=== PATIENT | male | born 1945 | race Caucasian/White ===

== ENCOUNTER 2023-11-12 11:28 | Outpatient (AMB) | payer MEDICARE, OTHER, SELFPAY ==
--- NOTE | 2023-11-12 11:33 | A.OFFVIS_ITS ---
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 Low back pain has been chronic condition for him bottom worsening for the past 5-7 years. He reports sergey diving injury in 1960s when he fell and hit the ground. He was followed previously by [facility] and [facility] and received multiple injections. Most recent injection in June 2021 at [facility] he underwent bilateral L4-L5 selective epidural injections with 30% overall symptom improvement. Back pain is localized to lower spine with radiation to his left buttock and bilateral anterior thighs and shins with numbness, tingling, and burning. Pain affects his daily activities, functioning, mood, sleep, and social interactions. He rates pain at 4/10 at rest and 7/10 with activities or walking. Denies any fever, chills, dizziness, shortness of breath, chest pain, bladder or bowel dysfunction or saddle anesthesia. Patient would like to proceed with interventional therapies for pain relief. Most recent lumbar spine MRI was completed in 2021 and is noted below. Location: Lower back radiates down bilateral legs Duration: Chronic pain, worsening for past 7 years Characteristics of symptom or complaint: Stabbing, sharp, burning, tingling, aching, exhausting, radiating, sore Aggravating or associated factors: Any movement, heat, walking, standing, prolonged sitting Relieving factors: Laying down, activity modifications, NSAIDs, tizanidine, tramadol Treatment: PT, Injections, lumbar fusion in 2007 ON LICENSE OF [facility] Medical History (Updated 11/12/23 @ 22:23 by Lucrecia Buchachiy, [employer]) Lumbar degenerative disc disease Lumbar spinal stenosis Heart murmur Aortic stenosis History of MRSA infection Chronic back pain Chronic depression Surgical History (Updated 11/12/23 @ 22:21 by RADHA Carrasco) H/O spinal fusion H/O microdiscectomy History of total right hip replacement Review of Systems Const All systems reviewed & are unremarkable except as noted in HPI and below Physical Exam Vital Signs: Last Vital Signs Pulse 63 11/12/23 11:41 BP 156/80 H 11/12/23 11:41 Pulse Ox 96 11/12/23 11:41 Oxygen Delivery Method Room Air 11/12/23 11:41 BMI result Body Mass Index 27.7 General: Appears afebrile. Alert and oriented. Mood and affect appropriate. Follows and participates in conversation appropriately. Respiratory effort is unlabored. No cough. Able to transition from sit to stand unassisted. Ambulates with bilaterally normal heel strike and toe off, reports increasing pain with toe and heel standing, left>right. General: Yes no CVA tenderness Back/Spine/Pelvis Other: Limited lumbar ROM due to pain and previous lumbar fusion. Demonstrates 5/5 strength of quadriceps bilaterally as well as flexion/dorsiflexion of bilateral feet against resistance. 2+ pedal pulses bilaterally. Straight leg rise with dorsiflexion positive bilaterally. +1 patellar and achilles reflexes bilaterally. Facet loading test positive bilaterally. New sign, Pelvic compression tests are negative bilaterally. Roe's test negative on the left, not tested on the right due to h/o FARRAH. No groin pain with I/E hip rotations. Valsalva maneuver negative. Back: no CVA tenderness Cervical Spine: loss of normal cervical lordosis, cervical muscular tenderness and No Cervical spine tenderness Thoracic/Lumbar Spine: thoracic and lumbar spine normal to inspection, Thoracic/lumbar spine scar(s), Lasegue's sign positive bilateral, pain with thoraco-lumbar ROM, paraspinal muscle tenderness, thoraco-lumbar ROM limited, No thoracic spinal tenderness and lumbar spinal tenderness (L3-S1) Pelvis: buttock tenderness on the left and sciatic notch tenderness on the left Sacroiliac joints: bilaterally tender to palpation Results Reviewed Results Reviewed: Assessment & Plan Assessment & Plan (1) Lumbar post-laminectomy syndrome: Code(s): M96.1 - Postlaminectomy syndrome, not elsewhere classified (2) H/O spinal fusion: Code(s): Z98.1 - Arthrodesis status Category: Surgical (3) Lumbar spinal stenosis: Code(s): M48.061 - Spinal stenosis, lumbar region without neurogenic claudication Category: Medical (4) Lumbar degenerative disc disease: Code(s): M51.36 - Other intervertebral disc degeneration, lumbar region Category: Medical (5) Low back pain radiating to both legs: Code(s): M54.50 - Low back pain, unspecified; M79.604 - Pain in right leg; M79.605 - Pain in left leg Category: Medical Plan Schedule Caudal MITRA with catheter with sedation and fluoroscopy. Expectations, risks and benefits were reviewed. Patient is aware he will be contacted to schedule this procedure. We also discussed neuromodulation, including SCS trial and implant for a longer term pain relief. Informational brochure has been provided to patient today. All questions were answered and the patient is in agreement of plan. Follow-up after injections and sooner as needed. Anticoagulation: Patient is not on anticoagulation, except Fish oil and NSAIDs Justification for interventional therapy: ? Patient with average pain > 6/10 ? Patient has exhausted conservative therapy The risks, consequences, alternatives, and benefits of various treatment options were discussed with the patient in great detail, including conservative management, injections and procedures. Coding Level of Care Code New Pt Level 4 (98807) Diagnoses Lumbar post-laminectomy syndrome M96.1 H/O spinal fusion Z98.1 Lumbar spinal stenosis M48.061 Lumbar degenerative disc disease M51.36 Low back pain radiating to both legs M54.50; M79.604; M79.605
[2023-11-12 11:41] VITALS: BP 156/80; PULSE 63; O2SAT 96; BMI 27.7
== END 2023-11-12 12:10 | disposition home or self-care (01) ==
PROVIDERS: PCP Internal Medicine; Visit Provider Nurse Practitioner Family
DX: M48.061 Spinal stenosis, lumbar region without neurogenic claudication (principal); M96.1 Postlaminectomy syndrome, not elsewhere classified; M51.36 Other intervertebral disc degeneration, lumbar region; Z98.1 Arthrodesis status; M54.50 Low back pain, unspecified; M79.604 Pain in right leg; M79.605 Pain in left leg
CPT/HCPCS: 99204

== ENCOUNTER → 2023-11-12 11:28 | Outpatient (BNVA) | payer MEDICARE, OTHER, SELFPAY | PROVIDERS: PCP Internal Medicine; Visit Provider Nurse Practitioner Family | DX: M96.1 Postlaminectomy syndrome, not elsewhere classified (principal); M51.36 Other intervertebral disc degeneration, lumbar region; M48.061 Spinal stenosis, lumbar region without neurogenic claudication; M54.50 Low back pain, unspecified; M79.604 Pain in right leg; M79.605 Pain in left leg; Z98.1 Arthrodesis status | CPT/HCPCS: 99202 ==

== ENCOUNTER → 2024-03-04 08:18 | Day surgery (SDC) | payer MEDICARE, OTHER, SELFPAY ==
[2024-01-20 12:14] VITALS: BMI 27.7
--- NOTE | 2024-01-21 13:48 | HO.ANESPROP2 ---
Documented by User: Charlene Lozada NP 02/24/24 13:38 HPI - Anesthesia Eval Consult details Narrative: 78yo M for Caudal Epidural Steroid Injection with Catheter, 03/04/24 Follows [facility] for aortic stenosis. Stable per 11/2023 office visit. PMFSH Active Problems Active Problems: All Active Problems Low back pain radiating to both legs (Acute) Lumbar degenerative disc disease (Acute) Lumbar spinal stenosis (Acute) H/O spinal fusion (Acute) Past Medical History Medical History History of trigger finger Hyperlipidemia Lumbar degenerative disc disease Lumbar spinal stenosis Heart murmur Aortic stenosis History of MRSA infection Chronic back pain Chronic depression Surgical History Surgical History History of total left hip replacement H/O spinal fusion H/O microdiscectomy History of total right hip replacement Social History Social History Patient Tobacco Use Status: Former Tobacco user Use of substances other than those prescribed or required for medical reasons: No Are you DNR?: No Advance Directives: No Advance Directives Information Provided: Yes Recently lost weight without trying: No Nutrition Risks: No Nutritional Risk Poor oral hygiene: No Meds Allergies Allergy/AdvReac Type Severity Reaction Status Date / Time No Known Allergies Allergy Verified 11/12/23 11:41 Home Medications ?Medication ?Instructions ?Recorded ?Confirmed ?Last Taken ?Type docusate sodium 100 mg capsule 100 mg PO TID 11/12/23 Unknown History (Stool Softener) magnesium oxide 500 mg PO BID 11/12/23 Unknown History meloxicam 15 mg tablet 15 mg PO DAILY 11/12/23 Unknown History multivitamin-ferrous 1 tab PO DAILY 11/12/23 Unknown History fumarate-folic acid 18 mg-400 mcg tablet (Centrum) naproxen sodium 220 mg tablet 220 mg PO Q12H PRN 11/12/23 Unknown History (Aleve) tizanidine 2 mg tablet 2 mg PO BEDTIME 11/12/23 Unknown History tramadol 50 mg tablet 50 mg PO QID PRN 11/12/23 Unknown History Exam Height,Weight and Vital Signs: Height 5 ft 8 in Weight 82.554 kg Narrative Narrative: EKG 11/2023 SB otherwise nml ECHO 10/2023 Vigorous LV sys function with moderate . Mean gradient is 21mmHg and VTI ration 0.29. (No significant change from previous. (SANDY 1.1cm2) Assessment and Plan Assessment Anesthesia Assessment: Chart Reviewed Documented by User: Britney Calixto MD 03/04/24 10:01 [facility] Past Medical History Medical History History of trigger finger Hyperlipidemia Lumbar degenerative disc disease Lumbar spinal stenosis Heart murmur Aortic stenosis History of MRSA infection Chronic back pain Chronic depression Surgical History Surgical History History of total left hip replacement H/O spinal fusion H/O microdiscectomy History of total right hip replacement History of Problems with Anesthesia: No Social History Social History Patient Tobacco Use Status: Former Tobacco user Use of substances other than those prescribed or required for medical reasons: No Are you DNR?: No Advance Directives: No Advance Directives Information Provided: Yes Recently lost weight without trying: No Nutrition Risks: No Nutritional Risk Poor oral hygiene: No Meds Allergies Allergy/AdvReac Type Severity Reaction Status Date / Time No Known Allergies Allergy Verified 11/12/23 11:41 Home Medications ?Medication ?Instructions ?Recorded ?Confirmed ?Last Taken ?Type docusate sodium 100 mg capsule 100 mg PO TID 11/12/23 Unknown History (Stool Softener) magnesium oxide 500 mg PO BID 11/12/23 Unknown History meloxicam 15 mg tablet 15 mg PO DAILY 11/12/23 Unknown History multivitamin-ferrous 1 tab PO DAILY 11/12/23 Unknown History fumarate-folic acid 18 mg-400 mcg tablet (Centrum) naproxen sodium 220 mg tablet 220 mg PO Q12H PRN 11/12/23 Unknown History (Aleve) tizanidine 2 mg tablet 2 mg PO BEDTIME 11/12/23 Unknown History tramadol 50 mg tablet 50 mg PO QID PRN 11/12/23 Unknown History Exam Airway Mallampati Class: III TM Dist: >3cm Neck ROM: Full Partial: Upper Loose/Missing/Broken Teeth: Yes and Upper Heart: RRR MEJIA Lungs: CTA Assessment and Plan Assessment Anesthesia Assessment: Anesthesia Plan Discussed Final Anesthetic Review History of Problems with Anesthesia: No NPO: Yes ASA Class: III Final Preanesthetic Review: Meds/Allgs Chart Reviewed, Consent Obtained/Reviewed and Anes Risks/Benef Reviewed Patient Risk: Intermediate Procedure Risk: Low Anesthetic Plan Anesthetic Plan: MAC: Disposition: Standard PACU
[2024-03-04 09:38] VITALS: BMI 27.6
[2024-03-04 09:45] VITALS: BP 171/81; PULSE 71; RESP 16; TEMP 36.8; O2SAT 99
[2024-03-04] MEDS: Lactated Ringers 1,000 ML 100 ML IVCONT (10:03)
--- NOTE | 2024-03-04 10:45 | PC.NURSE ---
right buttock covered with a bandaid. md almanza by bedside evaluting patient. cancelled due to ?mrsa in right buttock wound. being seen at dermatology.
[2024-03-11 16:17] LABS: MRSA Nasal PCR POSITIVE (Negative); SA Nasal PCR POSITIVE (Negative)
== END ==
LOC: HO.SSS 08:19
PROVIDERS: PCP Physician Assistant Medical; Visit Provider Anesthesiology
DX: M51.369 Other intervertebral disc degeneration, lumbar region without mention of lumbar back pain or lower extremity pain (principal); Z53.09 Procedure and treatment not carried out because of other contraindication; M96.1 Postlaminectomy syndrome, not elsewhere classified
CPT/HCPCS: 87081; 87640; 87641; J2003; J2250; J3010; J3301; Q9967

== ENCOUNTER 2024-03-10 11:23 | Outpatient (AMB) | payer MEDICARE, OTHER, SELFPAY ==
--- NOTE | 2024-03-10 11:28 | MHC.OFFVIS ---
Vital Signs 03/10/24 11:33 Height 5 ft 8.5 in Weight 185 lb 8 oz BMI 27.8 BP 140/72 H Blood Pressure Location Lt brachial Position Sitting Respiration 14 Pulse 64 Pulse Source Pulse Oximeter Pulse Oximetry (%) 98 Oxygen Delivery Method Room Air Intake Visit Reasons: Follow Up S/p Cx Procedure from 03/04/24 Intake Note: Patient comes in for follow up. Reports pain 08/11. Allergies No Known Allergies Allergy (Verified 03/10/24 11:34) HPI Comments Details: Bowen is very pleasant 78 years old gentleman who presents in my office today after our 1st encounter on 03/04/2024 when he came to the operating room to receive caudal epidural steroid injection with catheter ordered by Lucrecia, the TECHNOLOGY COACH. He has a history of L2 through L4 spinal fusion which was performed in 2007. He was recently diagnose with MRSA infection which is infected wound on his lower buttock/thigh. Because of the MRSA diagnosis I cancelled the injection. Besides I do not think that in his situation caudal MITRA with catheter would be appropriate procedure to perform. The patient presented today in we had very long discussion about the level of his pain. He reports that tramadol helps his pain more than anything. He reported today that it also improves his mood and also clears out his sinuses. The nature of tramadol was discussed. I told the patient that I can give him a short script of tramadol today, however if he wants to receive tramadol regularly in this office I can admit him into chronic opioid program. He is under care of psychiatrist but he stated that he just recently finished a course of Zoloft and he is no longer taking any antidepressant medications. He reported that is all of did not help his depression. We also discussed possibility of treatment of this patient with spinal cord stimulation. His pain is mostly axial and stems out of postlaminectomy syndrome. However I need to make sure that he no longer harbors MRSA infection. I will schedule him for multiple sources of cultures. Prior: h/o lumbar degenerative disc disease, L2-L4 spinal fusion in 2007, lumbar spinal stenosis, history of recent MRSA infection (treated at [facility]), heart murmur (sees [facility]) and chronic depression,c/o low back pain due to lumbar spinal stenosis. Low back pain has been chronic condition for him, worsening for the past 5-7 years. He reports sergey diving injury in 1960s when he fell and hit the ground. He was followed previously by [facility] and [facility] and received multiple injections. Most recent injection in June 2021 at [facility] he underwent bilateral L4-L5 selective epidural injections with 30% overall symptom improvement. Back pain is localized to lower spine with radiation to his left buttock and bilateral anterior thighs and shins with numbness, tingling, and burning. [facility] Medical History History of trigger finger Hyperlipidemia Lumbar degenerative disc disease Lumbar spinal stenosis Heart murmur Aortic stenosis History of MRSA infection Chronic back pain Chronic depression Surgical History History of total left hip replacement H/O spinal fusion H/O microdiscectomy History of total right hip replacement Social History Patient Tobacco Use Status: Former Tobacco user Review of Systems Const All systems reviewed & are unremarkable except as noted in HPI and below Physical Exam Vital Signs: Last Vital Signs Pulse 64 03/10/24 11:33 Resp 14 03/10/24 11:33 BP 140/72 H 03/10/24 11:33 Pulse Ox 98 03/10/24 11:33 Oxygen Delivery Method Room Air 03/10/24 11:33 BMI result Body Mass Index 27.8 General: Appears afebrile. Alert and oriented. Mood and affect appropriate. Follows and participates in conversation appropriately. Respiratory effort is unlabored. No cough. Able to transition from sit to stand unassisted. Ambulates with bilaterally normal heel strike and toe off, reports increasing pain with toe and heel standing, left>right. General: Yes no CVA tenderness Back/Spine/Pelvis Other: Limited lumbar ROM due to pain and previous lumbar fusion. Demonstrates 5/5 strength of quadriceps bilaterally as well as flexion/dorsiflexion of bilateral feet against resistance. 2+ pedal pulses bilaterally. Straight leg rise with dorsiflexion positive bilaterally. +1 patellar and achilles reflexes bilaterally. Facet loading test positive bilaterally. New sign, Pelvic compression tests are negative bilaterally. Roe's test negative on the left, not tested on the right due to h/o FARRAH. No groin pain with I/E hip rotations. Valsalva maneuver negative. Back: no CVA tenderness Cervical Spine: loss of normal cervical lordosis, cervical muscular tenderness and No Cervical spine tenderness Thoracic/Lumbar Spine: thoracic and lumbar spine normal to inspection, Thoracic/lumbar spine scar(s), Lasegue's sign positive bilateral, pain with thoraco-lumbar ROM, paraspinal muscle tenderness, thoraco-lumbar ROM limited, No thoracic spinal tenderness and lumbar spinal tenderness (L3-S1) Pelvis: buttock tenderness on the left and sciatic notch tenderness on the left Sacroiliac joints: bilaterally tender to palpation Results Reviewed Results Reviewed: Assessment & Plan Assessment & Plan (1) Lumbar post-laminectomy syndrome: Code(s): M96.1 - Postlaminectomy syndrome, not elsewhere classified (2) H/O spinal fusion: Code(s): Z98.1 - Arthrodesis status Category: Surgical (3) Lumbar spinal stenosis: Code(s): M48.061 - Spinal stenosis, lumbar region without neurogenic claudication Category: Medical (4) Lumbar degenerative disc disease: Code(s): M51.36 - Other intervertebral disc degeneration, lumbar region Category: Medical (5) Low back pain radiating to both legs: Code(s): M54.50 - Low back pain, unspecified; M79.604 - Pain in right leg; M79.605 - Pain in left leg Category: Medical (6) MRSA (methicillin resistant staph aureus) culture positive: Code(s): Z22.322 - Carrier or suspected carrier of Methicillin resistant Staphylococcus aureus Category: Medical Plan 1. I will prescribe him tramadol for 28 days. She reports very good results from tramadol. He is not taking any antidepressants at this moment. 2. I will invite him in the office in 3 weeks to discuss chronic opioid program. 3. I will schedule him for blood cultures as below. 4. Treatment of his lower back pain with [place] [employer] spinal cord stimulator will be contemplated in the future. Orders: Orders MRSA Nasal Screen 1 Day Z22.322 - Carrier or suspected carrier of Methicillin resistant Staphylococcus aureus Blood Culture X1 Today Z22.322 - Carrier or suspected carrier of Methicillin resistant Staphylococcus aureus MRSA Culture 1 Day Z22.322 - Carrier or suspected carrier of Methicillin resistant Staphylococcus aureus MRSA Culture 1 Day Z22.322 - Carrier or suspected carrier of Methicillin resistant Staphylococcus aureus Urine Culture Today Z22.322 - Carrier or suspected carrier of Methicillin resistant Staphylococcus aureus Medications: New tramadol 50 mg PO Q6H PRN 112 tabs 0RF pain 28 days Patient Instructions: I here by testify that I spent 45 minutes in conversation with this patient as well as planning further diagnostic studies, planning his future care and organizing this note. Coding Level of Care Code Est Pt Level 5 (93493) Diagnoses Lumbar post-laminectomy syndrome M96.1 H/O spinal fusion Z98.1 Lumbar spinal stenosis M48.061 Lumbar degenerative disc disease M51.36 Low back pain radiating to both legs M54.50; M79.604; M79.605 MRSA (methicillin resistant staph aureus) culture positive Z22.322
[2024-03-10 11:33] VITALS: BP 140/72; PULSE 64; RESP 14; O2SAT 98; BMI 27.8
== END 2024-03-10 12:04 | disposition home or self-care (01) ==
LOC: HO.PMC 11:24
PROVIDERS: PCP Physician Assistant Medical; Visit Provider Anesthesiology
DX: M96.1 Postlaminectomy syndrome, not elsewhere classified (principal); Z98.1 Arthrodesis status; M48.061 Spinal stenosis, lumbar region without neurogenic claudication; M51.369 Other intervertebral disc degeneration, lumbar region without mention of lumbar back pain or lower extremity pain; M54.50 Low back pain, unspecified; M79.604 Pain in right leg; M79.605 Pain in left leg; Z22.322 Carrier or suspected carrier of Methicillin resistant Staphylococcus aureus
CPT/HCPCS: 99215

== ENCOUNTER → 2024-03-10 11:23 | Outpatient (BNVA) | payer MEDICARE, OTHER, SELFPAY | PROVIDERS: PCP Physician Assistant Medical; Visit Provider Anesthesiology | DX: M54.50 Low back pain, unspecified (principal); M79.604 Pain in right leg; M79.605 Pain in left leg; M51.369 Other intervertebral disc degeneration, lumbar region without mention of lumbar back pain or lower extremity pain; M48.061 Spinal stenosis, lumbar region without neurogenic claudication; M96.1 Postlaminectomy syndrome, not elsewhere classified; Z22.322 Carrier or suspected carrier of Methicillin resistant Staphylococcus aureus; Z98.1 Arthrodesis status | CPT/HCPCS: 99212 ==

== ENCOUNTER 2024-03-30 13:03 | Outpatient (AMB) | payer MEDICARE, OTHER, SELFPAY ==
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
[2024-03-30 13:21] VITALS: BP 181/77; PULSE 71; O2SAT 97; BMI 28.1
== END 2024-03-30 13:45 | disposition home or self-care (01) ==
PROVIDERS: PCP Physician Assistant Medical; Visit Provider Anesthesiology
DX: M96.1 Postlaminectomy syndrome, not elsewhere classified (principal); Z98.1 Arthrodesis status; M48.061 Spinal stenosis, lumbar region without neurogenic claudication; M51.369 Other intervertebral disc degeneration, lumbar region without mention of lumbar back pain or lower extremity pain; M54.50 Low back pain, unspecified; M79.604 Pain in right leg; M79.605 Pain in left leg; Z22.322 Carrier or suspected carrier of Methicillin resistant Staphylococcus aureus
CPT/HCPCS: 99213

== ENCOUNTER → 2024-03-30 13:03 | Outpatient (BNVA) | payer MEDICARE, OTHER, SELFPAY | PROVIDERS: PCP Physician Assistant Medical; Visit Provider Anesthesiology | DX: M96.1 Postlaminectomy syndrome, not elsewhere classified (principal); M48.061 Spinal stenosis, lumbar region without neurogenic claudication; M51.360 Other intervertebral disc degeneration, lumbar region with discogenic back pain only; M54.50 Low back pain, unspecified; M79.604 Pain in right leg; M79.605 Pain in left leg; Z22.322 Carrier or suspected carrier of Methicillin resistant Staphylococcus aureus; Z98.1 Arthrodesis status | CPT/HCPCS: 99212 ==

== ENCOUNTER 2024-04-13 14:28 | Outpatient (AMB) | payer MEDICARE, OTHER, SELFPAY ==
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
[2024-04-13 14:37] VITALS: BP 172/83; PULSE 61; RESP 15; O2SAT 98; BMI 28.1
--- OUTSIDE RECORDS SUMMARY | 2024-04-14 02:51 | XMS_ITS | Clinical Summary ---
Author Organization Unknown Care Team Providers Care Senior [employer] Developer Name Role Phone AKILAH MARCELO, DARWIN Unavailable Unavailsarah KAUFFMAN PT, CARLA Unavailable Unavailable [facility]ORATORY TECHNICIAN, BESSIE Unavailable Unavailable Payers Payer Name Policy Type Policy Number Effective Date Expira tion Date MEDICARE.NGS.PDGM [id number] Problems Condition Name Condition Details Condition Category Status Onset Date Resolution Date Last Treatment Date Treating Clinician Comments AFTERCARE FOLLOWING JOINT REPLACEMENT SURGERY Active 12-19 00:00: 00 PRESENCE OF ARTIFICIAL HIP JOINT, BILATERAL Active 12-19 00:00: 00 OTHER INTERVERTEBR AL DISC DEGENERATION , LUMBAR REGION Active 05-04 00:00: 00 DEPRESSION, UNSPECIFIED Active 05-04 00:00: 00 ANXIETY DISORDER, UNSPECIFIED Active 05-04 00:00: 00 NONRHEUMATIC AORTIC (VALVE) STENOSIS Active 05-04 00:00: 00 HYPERLIPIDEM IA, UNSPECIFIED Active 05-04 00:00: 00 SANE NURSE (CURRENT) USE OF OPIATE ANALGESIC Active 12-17 00:00: 00 SANE NURSE (CURRENT) USE OF ASPIRIN Active 12-17 00:00: 00 Allergies, Adverse Reactions, Alerts Allergy Name Allergy Type Status Severity Reaction(s) Onset Date Inactive Date Treating Clinician Comments NO KNOWN ALLERGIES Propensity to adverse reactions Active 12-19 10:15: 30 Medications Ordered Medication Name Filled Medication Name Start Date Stop Date Current Medication? Ordering Clinician Indication Dosage Frequency Signature (SIG) Comments Components tramadol 50 mg tablet 10-31 00:00: 00 Yes [id number] PAIN 1 tablet EVERY 6 HOURS 1 tablet EVERY 6 HOURS (route: oral) Med Classific ation: Analgesic , Anti-infl ammatory or Antipyret ic aspirin 325 mg tablet 12-17 00:00: 00 Yes [id number] DVT PROPHYLAXIS 1 tablet 2 TIMES DAILY 1 tablet 2 TIMES DAILY (route: oral) Med Classific ation: Analgesic , Anti-infl ammatory or Antipyret ic cefadroxil 500 mg capsule 12-18 00:00: 00 12-25 23:59 :00 No [id number] PROPHYLAXIS 1 capsule EVERY 12 HOURS 1 capsule EVERY 12 HOURS (route: oral) Med Classific ation: Anti-Infe ctive Agents docusate sodium 100 mg tablet 12-17 00:00: 00 Yes [id number] CONSTIPATIO N 1 tablet 2 TIMES DAILY 1 tablet 2 TIMES DAILY (route: oral) Med Classific ation: Gastroint estinal Therapy Agents Iron (ferrous sulfate) 325 mg (65 mg iron) tablet 12-17 00:00: 00 Yes [id number] SUPPLEMENT 1 tablet DAILY 1 tablet DAILY (route: oral) Med Classific ation: Electroly te Balance-N utritiona l Products magnesium citrate 100 mg tablet 12-17 00:00: 00 Yes [id number] SUPPLEMENT 4 tablet DAILY 4 tablet DAILY (route: oral) Med Classific ation: Electroly te Balance-N utritiona l Products oxycodone 5 mg tablet 12-17 00:00: 00 Yes [id number] SEVERE PAIN 1-2 tablet EVERY 4 HOURS 1-2 tablet EVERY 4 HOURS (route: oral) Med Classific ation: Analgesic , Anti-infl ammatory or Antipyret ic Tylenol 325 mg capsule 12-17 00:00: 00 Yes [id number] PAIN 2 capsule EVERY 6 HOURS 2 capsule EVERY 6 HOURS (route: oral) Med Classific ation: Analgesic , Anti-infl ammatory or Antipyret ic Vital Signs Vital Name Observation Time Observation Value Commen ts Temperature 2022-12-25 09:49:00.000 97.5 [degF] Temperature 2022-12-23 14:50:00.000 97.1 [degF] Temperature 2022-12-19 09:36:00.000 97.5 [degF] BMI (%) 2022-12-19 09:35:49.000 27 kg/m2 Height 2022-12-19 09:35:42.000 68 [in_us] Pulse 2022-12-25 09:49:00.000 70 /min Pulse 2022-12-23 14:50:00.000 65 /min Pulse 2022-12-19 09:36:00.000 86 /min O2 Saturation (%) 2022-12-25 09:49:00.000 98 % O2 Saturation (%) 2022-12-19 09:36:00.000 98 % Respirations 2022-12-25 09:49:00.000 16 /min Respirations 2022-12-23 14:50:00.000 16 /min Respirations 2022-12-19 09:36:00.000 16 /min Weight (lbs) 2022-12-19 09:35:49.000 180 [lb_av] Systolic Blood Pressure 2022-12-25 09:49:00.000 138 mm [Hg] Systolic Blood Pressure 2022-12-23 14:50:00.000 130 mm [Hg] Systolic Blood Pressure 2022-12-19 09:36:00.000 140 mm [Hg] Diastolic Blood Pressure 2022-12-25 09:49:00.000 72 mm [Hg] Diastolic Blood Pressure 2022-12-23 14:50:00.000 80 mm [Hg] Diastolic Blood Pressure 2022-12-19 09:36:00.000 70 mm [Hg] Plan of Treatment Planned Activity Planned Date Details Comments Future Scheduled Test AGENCY MAY PERFORM A RESUMPTION OF CARE VISIT FOLLOWING ANY HOSPITAL ADMISSION. PHYSICAL THERAPY TO EVALUATE, ASSESS AND MONITOR, PROVIDE SKILLED THERAPEUTIC INTERVENTION, ACTIVITY, EDUCATION, AND TRAINING TO ADDRESS: [code = AGENCY MAY PERFORM A RESUMPTION OF CARE VISIT FOLLOWING ANY HOSPITAL ADMISSION. PHYSICAL THERAPY TO EVALUATE, ASSESS AND MONITOR, PROVIDE SKILLED THERAPEUTIC INTERVENTION, ACTIVITY, EDUCATION, AND TRAINING TO ADDRESS:] Future Scheduled Test ANTICOAGUL ANT THERAPY - PHYSICAL THERAPY [code = ANTICOAGULANT THERAPY - PHYSICAL THERAPY ] Future Scheduled Test OXYGEN SAT URATION (PT). NOTIFY MD IF 02SATS BELOW 90% AFTER 10 MIN OF REST. [code = OXYGEN SATURATION (PT). NOTIFY MD IF 02SATS BELOW 90% AFTER 10 MIN OF REST.] Future Scheduled Test PAIN MANAG EMENT (PT) [code = PAIN MANAGEMENT (PT)] Future Scheduled Test PHYSICAL T HERAPY TO INSTRUCT PATIENT/CAREGIVER ON RISK FOR HOSPITALIZATION/EMERGENCY ROOM VISITS, TEACH SIGNS AND SYMPTOMS THAT PUT PATIENT AT RISK, WHEN TO NOTIFY NURSE/PHYSICIAN OF COMPLICATIONS/DECLINE, AND WHEN TO CALL 911. [code = PHYSICAL THERAPY TO INSTRUCT PATIENT/CAREGIVER ON RISK FOR HOSPITALIZATION/EMERGENCY ROOM VISITS, TEACH SIGNS AND SYMPTOMS THAT PUT PATIENT AT RISK, WHEN TO NOTIFY NURSE/PHYSICIAN OF COMPLICATIONS/DECLINE, AND WHEN TO CALL 911.] Future Scheduled Test PHYSICAL T HERAPY TO OBSERVE WOUND/INCISION AND/OR INTACT DRESSING ON R HIP AND REPORT EARLY SIGNS AND SYMPTOMS OF WOUND DETERIORATION, COMPLICATIONS, OR INFECTION TO RN CLINICAL DIRECTOR OF PUBLIC SAFETY AND/OR PHYSICIAN. [code = PHYSICAL THERAPY TO OBSERVE WOUND/INCISION AND/OR INTACT DRESSING ON R HIP AND REPORT EARLY SIGNS AND SYMPTOMS OF WOUND DETERIORATION, COMPLICATIONS, OR INFECTION TO RN CLINICAL DIRECTOR OF PUBLIC SAFETY AND/OR PHYSICIAN.] Future Scheduled Test BED MOBILI TY TRAINING (PT); [code = BED MOBILITY TRAINING (PT);] Future Scheduled Test TRANSFER T RAINING (PT) [code = TRANSFER TRAINING (PT)] Future Scheduled Test GAIT TRAIN ING (PT) [code = GAIT TRAINING (PT)] Future Scheduled Test NEUROMUSCU LAR RE-EDUCATION / BALANCE RETRAINING (PT) [code = NEUROMUSCULAR RE-EDUCATION / BALANCE RETRAINING (PT)] Future Scheduled Test THERAPEUTI C EXERCISES (PT) [code = THERAPEUTIC EXERCISES (PT)] Goal 2022-12-25 Patient Goal - WALK BETTER Goal Provider Goal - Goal Provider Goal - PT GOAL: PATIENT WILL NOT EXHIBIT SIGNS AND SYMPTOMS OF ANTICOAGULANT TOXICITY. Goal Provider Goal - PATIENT WILL MAINTAIN OXYGEN SATURATION WITHIN PHYSICIAN ORDERED PARAMETERS THROUGHOUT EPISODE OF CARE Goal Provider Goal - PT GOAL: PATIENT/CAREGIVER WILL VERBALIZE UNDERSTANDING OF PAIN MANAGEMENT BY END OF EPISODE. Goal Provider Goal - PATIENT/CAREGIVER WILL VERBALIZE UNDERSTANDING OF SIGNS AND SYMPTOMS THAT PUT THE PATIENT AT RISK FOR HOSPITALIZATION /EMERGENCY ROOM VISITS, WHEN TO NOTIFY NURSE/PHYSICIAN OF COMPLICATIONS/DECLINE AND WHEN TO CALL 911. Goal Provider Goal - THE PATIENT WILL NOT DEMONSTRATE ANY WOUND COMPLICATIONS DURING THE EPISODE OF CARE. Goal Provider Goal - PT STG: PATIENT WILL DEMONSTRATE IMPROVED BED MOBILITY FROM MIN A TO INDEPENDENT WITHIN 1 WEEK. Goal Provider Goal - PT STG: PATIENT WILL DEMONSTRATE IMPROVED TRANSFERS FROM MIN A TO INDEPENDENT WITH RW WITHIN 2 WEEKS. Goal Provider Goal - PT LTG: PATIENT WILL DEMONSTRATE IMPROVED AMBULATION FROM MIN A TO INDEPENDENT WITH RW WITHIN 2 WEEKS. Goal Provider Goal - Goal Provider Goal - Reason for Visit INDEPENDENT WITH USE OF ASSISTIVE DEVICE Encounters Start Date/Time End Date/Time Encounter Type Admission Type Attending [facility] Care Department Encounter ID Discharge Date Discharge Status Discharge Condition Discharge Reason Percent Goals Met 2022-12-19 00:00:00 2022-12-25 00:00:00 Outpatient NEW ADMISSION CARLA KAUFFMAN [facility] [id number] 2022-12-25 00:00:00 DISCHARGE TO HOME OR SELF CARE INDEPENDEN T WITH USE OF ASSISTIVE DEVICE HH ONLY - OUT PATIENT 100.00
== END 2024-04-13 15:33 | disposition home or self-care (01) ==
PROVIDERS: PCP Physician Assistant Medical; Visit Provider Anesthesiology
DX: M54.50 Low back pain, unspecified (principal); M79.604 Pain in right leg; M79.605 Pain in left leg; Z22.322 Carrier or suspected carrier of Methicillin resistant Staphylococcus aureus
CPT/HCPCS: 99215

== ENCOUNTER → 2024-04-13 14:28 | Outpatient (BNVA) | payer MEDICARE, OTHER, SELFPAY | PROVIDERS: PCP Physician Assistant Medical; Visit Provider Anesthesiology | DX: M54.50 Low back pain, unspecified (principal); G89.4 Chronic pain syndrome; M96.1 Postlaminectomy syndrome, not elsewhere classified; M48.061 Spinal stenosis, lumbar region without neurogenic claudication; M51.369 Other intervertebral disc degeneration, lumbar region without mention of lumbar back pain or lower extremity pain; Z22.322 Carrier or suspected carrier of Methicillin resistant Staphylococcus aureus; Z98.1 Arthrodesis status | CPT/HCPCS: 99212 ==

== ENCOUNTER 2024-04-25 12:58 | Outpatient (AMB) | payer MEDICARE, OTHER, SELFPAY ==
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
--- OUTSIDE RECORDS SUMMARY | 2024-04-25 13:00 | XMS_ITS | Clinical Summary ---
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) USE OF OPIATE ANALGESIC Active 12-17 00:00: 00 MATHEMATICS IMPROVEMENT TEACHER (CURRENT) USE OF ASPIRIN Active 12-17 00:00: [...] 50 mg tablet 10-31 00:00: 00 Yes [id number] PAIN 1 tablet EVERY 6 HOURS 1 tablet EVERY 6 HOURS (route: oral) Med Classific ation: Analgesic , Anti-infl ammatory or Antipyret ic aspirin 325 mg tablet 12-17 00:00: 00 Yes [id number] DVT PROPHYLAXIS 1 tablet 2 TIMES DAILY 1 tablet 2 TIMES DAILY (route: oral) Med Classific ation: Analgesic , Anti-infl ammatory or Antipyret ic cefadroxil 500 mg capsule 12-18 00:00: 00 12-25 23:59 :00 No [id number] PROPHYLAXIS 1 capsule EVERY 12 HOURS 1 capsule EVERY 12 HOURS (route: oral) Med Classific ation: Anti-Infe ctive Agents docusate sodium 100 mg tablet 12-17 00:00: 00 Yes [id number] CONSTIPATIO N 1 tablet 2 TIMES DAILY 1 tablet 2 TIMES DAILY (route: oral) Med Classific ation: Gastroint estinal Therapy Agents Iron (ferrous sulfate) 325 mg (65 mg iron) tablet 12-17 00:00: 00 Yes [id number] SUPPLEMENT 1 tablet DAILY 1 tablet DAILY (route: oral) Med Classific ation: Electroly te Balance-N utritiona l Products magnesium citrate 100 mg tablet 12-17 00:00: 00 Yes [id number] SUPPLEMENT 4 tablet DAILY 4 tablet DAILY (route: oral) Med Classific ation: Electroly te Balance-N utritiona l Products oxycodone 5 mg tablet 12-17 00:00: 00 Yes [id number] SEVERE PAIN 1-2 tablet EVERY 4 HOURS 1-2 tablet EVERY 4 HOURS (route: oral) Med Classific ation: Analgesic , Anti-infl ammatory or Antipyret ic Tylenol 325 mg capsule 12-17 00:00: 00 Yes [id number] PAIN 2 capsule EVERY 6 HOURS 2 [...] DETERIORATION, COMPLICATIONS, OR INFECTION TO RN CLINICAL VASC TECH AND/OR PHYSICIAN. [code = PHYSICAL THERAPY TO OBSERVE WOUND/INCISION AND/OR INTACT DRESSING ON R HIP AND REPORT EARLY SIGNS AND SYMPTOMS OF WOUND DETERIORATION, COMPLICATIONS, OR INFECTION TO RN CLINICAL VASC TECH AND/OR PHYSICIAN.] Future Scheduled Test BED MOBILI [...] End Date/Time Encounter Type Admission Type Attending [facility] Care Department Encounter ID Discharge Date Discharge Status Discharge Condition Discharge Reason Percent Goals Met 2022-12-19 00:00:00 2022-12-25 00:00:00 Outpatient NEW ADMISSION CARLA KAUFFMAN [facility] [id number] 2022-12-25 00:00:00 DISCHARGE TO HOME OR SELF CARE INDEPENDEN T WITH USE OF ASSISTIVE DEVICE HH ONLY - OUT PATIENT 100.00
[2024-04-25 13:07] VITALS: BP 178/79; PULSE 71; O2SAT 97; BMI 28.7
== END 2024-04-25 13:19 | disposition home or self-care (01) ==
PROVIDERS: PCP Physician Assistant Medical; Visit Provider Nurse Practitioner Family
DX: M96.1 Postlaminectomy syndrome, not elsewhere classified (principal); Z98.1 Arthrodesis status; M48.061 Spinal stenosis, lumbar region without neurogenic claudication; M51.369 Other intervertebral disc degeneration, lumbar region without mention of lumbar back pain or lower extremity pain; M54.50 Low back pain, unspecified; M79.604 Pain in right leg; M79.605 Pain in left leg; Z22.322 Carrier or suspected carrier of Methicillin resistant Staphylococcus aureus; Z79.891 Long term (current) use of opiate analgesic
CPT/HCPCS: 99214; G2211

== ENCOUNTER → 2024-04-25 12:58 | Outpatient (BNVA) | payer MEDICARE, OTHER, SELFPAY | PROVIDERS: PCP Physician Assistant Medical; Visit Provider Nurse Practitioner Family | DX: Z51.81 Encounter for therapeutic drug level monitoring (principal); M96.1 Postlaminectomy syndrome, not elsewhere classified; M48.061 Spinal stenosis, lumbar region without neurogenic claudication; M51.360 Other intervertebral disc degeneration, lumbar region with discogenic back pain only; M79.604 Pain in right leg; M54.50 Low back pain, unspecified; M79.605 Pain in left leg; Z22.322 Carrier or suspected carrier of Methicillin resistant Staphylococcus aureus; Z79.891 Long term (current) use of opiate analgesic | CPT/HCPCS: 99212 ==

== ENCOUNTER 2024-06-27 12:40 | Outpatient (AMB) | payer MEDICARE, OTHER, SELFPAY ==
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
[2024-06-27 13:02] VITALS: BP 172/79; PULSE 58; O2SAT 98; BMI 28.7
--- OUTSIDE RECORDS SUMMARY | 2024-06-27 14:21 | XMS_ITS | Encounter Summary ---
Author Organization [employer] Address [address] [place] [address] [address] [place] [address] Care Team Providers Care College And Career Counselor Name Role Phone Tania Acosta [facility] Primary Care Provider [phone] Reason for Visit * Reason Comments Med Refill Encounter Details Date Type Department Care Team (Late st Contact Info) Description 07/30/2022 Refill [facility] [address] [place] [address] Maren Sharma FNP [address] [place] [address] Chronic back pain, unspecified back location, unspecified back pain laterality Social History Tobacco Use Types Packs/Day Years Used Date Smoking Tobacco: Former Cigarettes 1.5 16 1 7 - 1982 Smokeless Tobacco: Never Alcohol Use Standard Drinks/Week Comments Not Currently 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 Depression Answer Date Recorded Patient Health Questionnaire-9 Score 9 05/28/2022 Depression Answer Date Recorded Patient Health Questionnaire-2 Score 4 05/28/2022 Sex and Gender Information Value Date Recorded Sex Assigned at Male 05/26/2022 4:10 PM EST Legal Sex Male 8:40 PM EDT Gender Identity Male 05/26/2022 4:10 PM EST Sexual Orientation Straight 08/01/2022 12 :12 PM EDT COVID-19 Exposure Response Date Recorded In the last 10 days, have yo u been in contact with someone who was confirmed or suspected to have Coronavirus/COVID-19? No / Unsure 07/30/2022 2:46 PM EDT documented as of this encounter Plan of Treatment Not on file documented as of this encounter Visit Diagnoses Diagnosis Chronic back pain, unspecified back location, unspecified back pain laterality documented in this encounter Additional Health Concerns Assessment Noted Time PHQ-9 Depression Total Score: 9 05/28/19 3:48 PM EST documented as of this encounter Care Teams College And Career Counselor Relationship Specialty Start Date End Date Tania Acosta FNP [address] [place] [address] PCP - General Family Medicine 05/26/22 documented as of this encounter
--- OUTSIDE RECORDS SUMMARY | 2024-06-27 14:21 | XMS_ITS | Clinical Summary ---
Author Organization [facility] Address [address] [place] [address] Care Team Providers Care Automatic I Threading Machine Feeder Name Role Phone Jesus Chaz GOMEZ Primary Care Provider [phone] Allergies No known active allergies Medications atorvastatin (LIPITOR) 40 mg tablet Take 1 tablet (40 mg total) by mouth 1 (one) time each day. Active FERROUS GLUCONATE ORAL Take by mouth. Active MAGNESIUM OXIDE ORAL Take by mouth. 450 mg Active multivitamin (MULTIPLE VITAMINS ORAL) Take by mouth. Active NAPROXEN ORAL Take by mouth. Active OMEGA-3 FATTY ACIDS ORAL Take 3 Capsules by mouth daily. Active traMADoL (ULTRAM) 50 mg tablet Take 50 mg by mouth every 6 hours as needed. Active Active Problems Problem Noted Date Diagnosed Date Aortic stenosis 10/11/2021 Heart murmur 10/11/2021 Lumbar stenosis with neurogenic claudication Overview (05/06/2024): Last Assessment & Plan: Mr. Samaniego is a 75-year-old man who underwent L2-4 posterior lumbar fusion with Dr. Kraus in 2007. For the past several years he has had worsening back pain with radiation to the anterolateral thighs. He has had 2 epidural steroid injections with minimal relief. We will send him for x-rays to rule out any instability adjacent to his fusion construct before he starts physical therapy. Surgical History Surgery Date Site/Laterality Comments HIP ARTHROPLASTY Left PROCEDURE: HISTORICAL HIP REPLACEMENT; COMMENT: 2007 BACK SURGERY N/A PROCEDURE: HISTORICAL BACK SURGERY; COMMENT: 2007 - decompresion and L2-4 fusion by EYE SURGERY PROCEDURE: HISTORICAL EYE SURGERY; COMMENT: OS amblyopia HAND SURGERY PROCEDURE: [place] UNLISTED PROCEDURE HANDS/FINGERS; COMMENT: trigger finger release - RT 4th nolan Medical History Medical History Date Comments Aortic stenosis 03/22/2020 DX:Aortic stenos is Benign enlargement of prostate 03/12/2016 D X:Benign enlargement of prostate Heart murmur 03/17/2019 DX:Heart murmur Mixed hyperlipidemia DX:Mixed hy perlipidemia Osteoarthritis DX:Osteoarthriti s Family History Medical History Relation Name Comments Alcohol/Drug Father Alcohol abuse Mother Relation Name Status Comments Father Mother Social History Tobacco Use Types Packs/Day Years Used Date Smoking Tobacco: Never Smokeless Tobacco: Never Alcohol Use Standard Drinks/Week Comments Not Currently 0 (1 standard drink = 0.6 oz pur e alcohol) Sex and Gender Information Value Date Recorded Sex Assigned at Not on file Legal Sex Male 2:49 PM EST Gender Identity Not on file Sexual Orientation Not on file Obstetrics History Last Filed Vital Signs Vital Sign Reading Time Taken Comments Blood Pressure 130/75 11/04/2023 10:57 AM EDT Si tting L Arm Pulse 59 11/04/2023 10:57 AM EDT Temperature - - Respiratory Rate - - Oxygen Saturation - - Inhaled Oxygen Concentration - - Weight 84.4 kg (186 lb) 11/04/2023 10:57 AM EDT Height 172.7 cm (5' 8 ) 11/04/2023 10:57 AM EDT Body Mass Index 28.28 11/04/2023 10:57 AM EDT Plan of Treatment Upcoming Encounters Date Type Department Care Team (Late st Contact Info) Description 11/01/2024 11:00 AM EDT Ancillary Procedure [facility] [address] [facility] [address] [place] [address] Health Maintenance Due Date Last Done Comments DTaP,Tdap,and Td Vaccines (1 - Tdap) 1965 Zoster Vaccines (1 of 2) 1996 RSV Immunization Patients 60+ Years Old (1 - 1-dose 75+ series) 2021 Pneumococcal Vaccine: 50+ Years (2 of 2 - PCV) 04/01/2022 04/01/2021 Cholesterol Screening (Lipid Panel) 04/13/2022 Depression Screening 04/13/2022 Falls Risk Assessment 04/13/2022 Hepatitis C Screening 04/13/2022 Medicare Annual Wellness Visit 04/13/2022 Social Influencers of Health Screening 04/13/2022 COVID-19 Vaccine ( season) 2024 05/02/2021, 09/21/2020, 08/31/2020 Influenza Vaccine (#1) 2024 , 03/22/2020, 03/17/2019, Additional history exists HIB Vaccines Aged Out No longer eligi ble based on patient's age to complete this topic HPV Vaccines Aged Out No longer eligi ble based on patient's age to complete this topic Hepatitis A Vaccines Aged Out No long er eligible based on patient's age to complete this topic Hepatitis B Vaccines Aged Out No long er eligible based on patient's age to complete this topic IPV Vaccines Aged Out No longer eligi ble based on patient's age to complete this topic MMR Vaccines Aged Out No longer eligi ble based on patient's age to complete this topic Meningococcal ACWY Vaccine Aged Out N o longer eligible based on patient's age to complete this topic Meningococcal B Vacine Aged Out No lo nger eligible based on patient's age to complete this topic RSV Immunization Patients Under 20 months Aged Out No longer eligible based on patient's age to complete this topic Varicella Vaccines Aged Out No longer eligible based on patient's age to complete this topic Insurance MEDICARE [facility] Care Teams Automatic I Threading Machine Feeder Relationship Specialty Start Date End Date Chaz Lee PA [address] [place] [id number] PCP - General 11/04/23
--- OUTSIDE RECORDS SUMMARY | 2024-06-27 14:21 | XMS_ITS | Clinical Summary ---
Author Organization [employer] Address [address] [place] [address] [address] [place] [address] Care Team Providers Care Copy Holder Name Role Phone Tania Acosta RADHA Primary Care Provider [phone] Allergies No known active allergies Medications Multiple Vitamin (multivitamin) capsuleIndications: Centrum Silver 50+ Take 1 capsule by mouth in the morning. Active cyanocobalamin (Vitamin B-12) 1000 MCG tablet Take 2,000 mcg by mouth in the morning. Active omega-3 acid ethyl esters (Lovaza) 1 g capsule Take 7,200 mg by mouth in the morning. Active atorvastatin (Lipitor) 80 MG tabletIndications:H yperlipidemia, unspecified hyperlipidemia type Take 1 tablet (80 mg) by mouth in the morning. 30 tablet 5 3 Active NAZARIO FERROUS SULFATE PO 60 mg. 3 Active magnesium oxide (Mag-Ox) 400 mg tablet Take 2 tablets (800 mg) by mouth in the morning. Pt taking 2 400 mg tablets daily 90 tablet 3 Active Active Problems Problem Noted Date Diagnosed Date Osteoarthritis of hips, bilateral 01/22/2023 Overview (01/22/2023): 12/17/22 OCrystal: R total hip arthroplasty Dc home with Rylee VILLEGAS. FU at [facility] 2 weeks post. 2009 s/p L hip replacement Dr. Moyer. Other hyperlipidemia 07/30/2022 Overview (07/30/2022): 07/2022 ASCVD Risk 22.8% - max dose statin recommended. Assessment & Plan (07/30/2022 5:29 PM EDT): On Atorvastatin 40mg without any medication side effects. Will increase to 80mg daily. Overweight (BMI 25.0-29.9) 05/29/2022 Assessment & Plan (05/29/2022 2:58 PM EST): Will come for labwork tomorrow AM when fasting. Chronic back pain 05/29/2022 Overview (07/30/2022): Engaged with Dr. Bernard at [facility]. Has had multiple cortisone injections. Assessment & Plan (07/30/2022 5:33 PM EDT): Will sign EDDIE to get records from pain management. Would consider Tramadol Rx after speaking if pain management is in agreement. Discussed treatment options - Naprosyn wasn't helpful. Will trial Lidocaine patch. Reviewed medication, administration, and potential side effects. Will continue to monitor. Assessment & Plan (05/29/2022 2:53 PM EST): Previously dx with spinal stenosis. Has had previous back surgeries. Was on Tramadol in the past, last filled in February 2022 per PDMP. Continues to have pain. Discussed treatment options - will not restart opioid at this time. Plan to start Naproxen. Reviewed medication, administration, and potential side effects. Will continue to discuss. BMI 27.0-27.9,adult 05/29/2022 Other specified abnormal findings of blood chemi stry 05/29/2022 Depression 05/29/2022 Assessment & Plan (05/29/2022 2:55 PM EST): History of depression, reports multiple failed medications. Reports depression improved after Tramadol initiated. Denies SI/HI. Will continue to discuss. Heart murmur 05/29/2022 Assessment & Plan (05/29/2022 2:57 PM EST): Known heart murmur, pt reports previously diagnosed with calcification on heart valve - unsure of which one. Currently asymptomatic. Will continue to monitor. Immunizations Name Administration Dates Next Due Influenza High-dose Quadriva lent Preservative Free 02/18/2023 Influenza injectable quadriv alent preservative free 03/19/2022 Pfizer Covid-19 Vaccine 12+ 03/19/2022, 2,05/02/2021 Pfizer Covid-19 Vaccine 12+ Bivalent 03/19/2022 Pfizer Covid-19 Vaccine 12+ roxane-sucrose (Manrique Cap) 09/24/2021 Family History Medical History Relation Name Comments Alcohol abuse Brother 1 Age 65, compli cations of ETOH htn Brother 2 Diabetes Father Passed at age 7 8 Valvular heart disease Father Alcohol abuse Mother Atrial fibrillation Mother Passed a t age 53 from AFib. 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 Depression Answer Date Recorded Patient Health Questionnaire-9 Score 9 05/28/2022 Housing Stability Answer Date Recorded What is your housing situation today? I have dexter dill 02/17/[address] you li ve. Do you have problems with any of the following? None of the above 02/17/2023 Food Insecurity Answer Date Recorded Within the past 12 months, y ou worried that your food would run out before you got money to buy more: Never True 02/17/2023 Within the past 12 months,th e food you bought just didn't last and you didn't have enough money to get more: Never True Transportation Answer Date Recorded In the past 12 months, has l ack of transportation kept you from medical appts, meetings, work or from getting things needed for daily living? No 02/17/2023 Utilities Answer Date Recorded In the past 12 months, has t he electric, gas, oil or water company threatened to shut off services in your home? No 02/17/2023 Depression Answer Date Recorded Patient Health Questionnaire-2 Score 4 05/28/2022 Sex and Gender Information Value Date Recorded Sex Assigned at Male 05/26/2022 4:10 PM EST Legal Sex Male 8:40 PM EDT Gender Identity Male 05/26/2022 4:10 PM EST Sexual Orientation Straight 08/01/2022 12 :12 PM EDT Last Filed Vital Signs Vital Sign Reading Time Taken Comments Blood Pressure 146/88 11/07/2022 12:32 PM EDT Pulse 83 11/07/2022 12:32 PM EDT Temperature 36.3 ??C (97.3 ??F) 11/07/2022 12:32 PM E DT Respiratory Rate 16 08/30/2022 9:59 AM EDT Oxygen Saturation 99% 08/30/2022 9:59 AM EDT Inhaled Oxygen Concentration - - Weight 85.7 kg (189 lb) 11/07/2022 12:32 PM EDT Height 172.7 cm (5' 8 ) 11/07/2022 12:32 PM EDT Body Mass Index 28.74 11/07/2022 12:32 PM EDT Plan of Treatment Health Maintenance Due Date Last Done Comments Alcohol/Substance Use Screening 1957 Hepatitis C Screening 1964 DTaP/Tdap/Td Vaccines (1 - Tdap) 1965 Pneumococcal Vaccine: 50+ Years (1 of 1 - PCV) 1996 Zoster Vaccines (1 of 2) 1996 RSV Patients and Patients Aged 60 years or older (1 - 1-dose 75+ series) 2021 Depression Monitoring (PHQ-9) 11/25/2022 05/28/2022, 05/28/2022 Depression Screening 05/28/2023 05/28/2022, 05/28/19 23 Tobacco Screening 07/31/2023 07/30/2022 SDOH Screening 11/08/2023 11/07/2022 COVID-19 Vaccine ( season) 2024 03/19/2022, 03/19/2022, 09/24/2021, Additional history exists Influenza Vaccine (#1) 2024 02/18/2023, 2021 Lipid Panel 08/06/2027 08/05/2022, 05/29/2022 HIB Vaccines Aged Out No longer eligi [...] patient's age to complete this topic Meningococcal Vaccine Aged Out No jorge aretha eligible based on patient's age to complete this topic RSV under 20 months Aged Out No longe r eligible based on patient's age to complete this topic Rotavirus Vaccines Aged Out No longer eligible based on patient's age to complete this topic Procedures Procedure Name Priority Date/Time Associated Diagnosis Comments LIPID PANEL, STANDARD Routine 08/05/2022 10:09 AM EDT from Last 3 Months or Most Recently Relevant to Health Maintenance Results * Lipid Panel, Standard (08/05/2022 10:09 AM EDT) Cholesterol, Total 121 (<200) MG/DL [facility] Triglyceride (mg/dL) in Serum/Plasma 63 (<150) MG/DL [facility] HDL Cholesterol 54 (>39) MG/DL [facility] LDL Cholesterol, Calculated 54 (0-130) MG/DL [facility] Non HDL Chol. (LDL+VLDL) 67 (<160) MG/DL [facility] Comment: Testing performed or reported by [facility], a Service of [facility], [address] [place] [address] Mirtha Cabrera MD, Seasonal Retail Merchandiser [facility]# [id number] 08/05/2022 10:0 9 AM EDT 08/05/2022 10:13 AM EDT us Tania GARCIA LAB BLOOD ORDERABLES Final Resul t [place] [id number] from Last 3 Months or Most Recently Relevant to Health Maintenance Insurance [place] [phone] [facility] Care Teams Copy Holder Relationship Specialty Start Date End Date Tania Acosta FNP [address] [place] PCP - General Family Medicine 05/26/22
--- OUTSIDE RECORDS SUMMARY | 2024-06-27 14:21 | XMS_ITS | Encounter Summary ---
Author Organization [facility] Address [address] [place] [address] [address] [place] [address] Care Team Providers Care Line Fisher Name Role Phone Tania Acosta Primary Care Provider [phone] Encounter Details Date Type Department Care Team (Late st Contact Info) Description 05/27/2022 Abstract [facility] MEDICAL [address] [facility] [place] [address] Tania Acosta FNP [address] [facility] [place] [address] Social History Tobacco Use Types Packs/Day Years Used Date Smoking Tobacco: Never Assessed Depression Answer Date Recorded Patient Health Questionnaire-9 [...] suspected to have Coronavirus/COVID-19? No / Unsure 05/28/2022 3:14 PM EST documented as of this encounter Plan of Treatment Not on file documented as of this encounter Visit Diagnoses Not on filedocumented in this encounter Care Teams Line Fisher Relationship Specialty Start Date End Date Tania Acosta FNP [address] [facility] [place] [address] PCP - General Family Medicine 05/26/22 documented as of this encounter
== END 2024-06-27 13:14 | disposition home or self-care (01) ==
PROVIDERS: PCP Physician Assistant Medical; Visit Provider Nurse Practitioner Family
DX: M96.1 Postlaminectomy syndrome, not elsewhere classified (principal); Z98.1 Arthrodesis status; M48.061 Spinal stenosis, lumbar region without neurogenic claudication; M51.369 Other intervertebral disc degeneration, lumbar region without mention of lumbar back pain or lower extremity pain; Z79.891 Long term (current) use of opiate analgesic
CPT/HCPCS: 99214; G2211

== ENCOUNTER → 2024-06-27 12:40 | Outpatient (BNVA) | payer MEDICARE, OTHER, SELFPAY | PROVIDERS: PCP Physician Assistant Medical; Visit Provider Nurse Practitioner Family | DX: Z51.81 Encounter for therapeutic drug level monitoring (principal); M96.1 Postlaminectomy syndrome, not elsewhere classified; M48.061 Spinal stenosis, lumbar region without neurogenic claudication; M51.360 Other intervertebral disc degeneration, lumbar region with discogenic back pain only; Z98.1 Arthrodesis status; Z79.891 Long term (current) use of opiate analgesic | CPT/HCPCS: 99212 ==

== ENCOUNTER 2024-09-06 14:06 | Outpatient (AMB) | payer MEDICARE, OTHER, SELFPAY ==
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
[2024-09-06 14:22] VITALS: BP 148/71; PULSE 62; O2SAT 98; BMI 28.8
--- OUTSIDE RECORDS SUMMARY | 2024-09-06 15:26 | XMS_ITS | Clinical Summary ---
Author Organization [employer] Address [address] [place] [address] Care Team Providers Care Rebeamer Name Role Phone Tania Acosta WINCHER Primary Care Provider [phone] Allergies No known active allergies Medications Multiple [...] of hips, bilateral 01/22/2023 Overview (01/22/2023): 12/17/22 O'Pawel: R total hip arthroplasty Dc home with Rylee VILLEGAS. [facility] 2 weeks post. 2009 s/p L hip [...] Overview (07/30/2022): Engaged with Dr. Bernard at [facility]. Has had multiple [...] Smoking Tobacco: Former Cigarettes 1.5 16 1 967 - 1982 Smokeless Tobacco: Never Tobacco Cessation:Counseling [...] - 1-dose 75+ series) 2021 Depression Monitoring 11/25/2022 05/28/2022, 023 Depression Screening 05/28/2023 05/28/2022, 05/28/19 23 Tobacco [...] AM EDT) Cholesterol, Total 121 (<200) MG/DL [facility] Triglyceride (mg/dL) in Serum/Plasma 63 (<150) MG/DL [facility] HDL Cholesterol 54 (>39) MG/DL [facility] LDL Cholesterol, Calculated 54 (0-130) MG/DL [facility] Non HDL Chol. (LDL+VLDL) 67 (<160) MG/DL [facility] Comment: Testing performed or reported by [facility], a Service of [facility], [address] [place] [address] Mirtha Cabrera MD, Probation Worker [facility]# [id number] 08/05/2022 10:0 9 AM EDT 08/05/2022 10:13 AM EDT us Tania GARCIA LAB BLOOD ORDERABLES Final Resul t [address] [phone] from Last 3 Months or Most Recently Relevant to Health Maintenance Insurance MEDICARE [facility] Care Teams Rebeamer Relationship Specialty Start Date End Date Tania Acosta FNP [address] [place] [address] PCP - General Family Medicine 05/26/22
--- OUTSIDE RECORDS SUMMARY | 2024-09-06 15:26 | XMS_ITS | Encounter Summary ---
Author Organization [employer] Address [address] [facility] [address] [place] [address] Care Team Providers Care Cartography Technician Name Role Phone Tania Acosta Primary Care Provider [phone] Encounter Details Date Type Department Care Team (Late st Contact Info) Description 05/27/2022 Abstract Awilda [facility] [address] [facility] [place] [phone] Tania Acosta FNP [address] [place] [address] Social History Tobacco Use Types Packs/Day Years [...] Recorded In the last 10 days, have abigail u been in contact with someone who was confirmed or suspected to have Coronavirus/COVID-19? No / Unsure 05/28/2022 3:14 PM EST documented as of this encounter Plan of Treatment Not on file documented as of this encounter Visit Diagnoses Not on filedocumented in this encounter Care Teams Cartography Technician Relationship Specialty Start Date End Date Tania Acosta FNP [address] [facility] [place] [address] PCP - General Family Medicine 05/26/22 documented as of this encounter
--- OUTSIDE RECORDS SUMMARY | 2024-09-06 15:26 | XMS_ITS | Encounter Summary ---
Author Organization [employer] Address [address] [facility] [address] [place] [address] Care Team Providers Care Stunt Person Name Role Phone Tania Acosta WATER PUMP OPERATOR Primary Care Provider [phone] Reason for Visit * Reason Comments Med Refill Encounter Details Date Type Department Care Team (Late st Contact Info) Description 07/30/2022 Refill Awilda [facility] [address] [place] [address] Maren Sharma FNP [address] [place] [address] Chronic back pain, unspecified back location, unspecified [...] Time PHQ-9 Depression Total Score: 9 05/28/19 23 3:48 PM EST documented as of this encounter Care Teams Stunt Person Relationship Specialty Start Date End Date Tania Acosta FNP [address] [place] [address] PCP - General Family Medicine 05/26/22 documented as of this encounter
--- OUTSIDE RECORDS SUMMARY | 2024-09-06 15:26 | XMS_ITS | Clinical Summary ---
Author Organization [facility] Address [address] [place] [address] Care Team Providers Care Self Contained Behavior Unit Teacher Name Role Phone Jesus, Chaz GOMEZ Primary Care Provider [phone] Allergies No known active allergies Medications atorvastatin [...] SURGERY; COMMENT: OS amblyopia HAND SURGERY PROCEDURE: [place] UNLISTED PROCEDURE HANDS/FINGERS; COMMENT: trigger finger release [...] Description 11/01/2024 11:00 AM EDT Ancillary Procedure [facility] [address] [facility] [address] [place] [address] Health Maintenance Due Date Last Done Comments DTaP,Tdap,and Td Vaccines (1 - Tdap) 1965 Zoster Vaccines (1 of 2) 1996 RSV Immunization Adult Patients (1 - 1-dose 75+ series) 2021 Pneumococcal Vaccine: 50+ Years (2 of 2 - PCV) 04/01/2022 04/01/2021 Cholesterol Screening (Lipid Panel) 04/13/2022 Depression Screening 04/13/2022 Falls Risk Assessment 04/13/2022 Hepatitis C Screening 04/13/2022 Medicare Annual Wellness Visit 04/13/2022 Social Influencers of Health Screening 04/13/2022 COVID-19 Vaccine (4 - 2024-25 season) 2024 05/02/2021, 09/21/2020, 08/31/2020 Influenza Vaccine (Season Ended) 2025 04/01/2021, 03/22/2020, 03/17/2019, Additional history exists HIB Vaccines [...] age to complete this topic Meningococcal B Vaccine Aged Out No l onger eligible based on patient's age to complete this topic RSV Immunization Patients Under 20 months Aged Out No longer eligible based on patient's age to complete this topic Varicella Vaccines Aged Out No longer eligible based on patient's age to complete this topic Insurance MEDICARE [facility] Care Teams Self Contained Behavior Unit Teacher Relationship Specialty Start Date End Date Chaz Lee PA PCP - General 11/04/23
== END 2024-09-06 14:28 | disposition home or self-care (01) ==
LOC: HO.PMC 14:07
PROVIDERS: PCP Physician Assistant Medical; Visit Provider Nurse Practitioner Family
DX: M96.1 Postlaminectomy syndrome, not elsewhere classified (principal); Z98.1 Arthrodesis status; M48.061 Spinal stenosis, lumbar region without neurogenic claudication; M51.369 Other intervertebral disc degeneration, lumbar region without mention of lumbar back pain or lower extremity pain; Z79.891 Long term (current) use of opiate analgesic
CPT/HCPCS: 99214; G2211

== ENCOUNTER → 2024-09-06 14:06 | Outpatient (BNVA) | payer MEDICARE, OTHER, SELFPAY | PROVIDERS: PCP Physician Assistant Medical; Visit Provider Nurse Practitioner Family | DX: M96.1 Postlaminectomy syndrome, not elsewhere classified (principal); M48.061 Spinal stenosis, lumbar region without neurogenic claudication; M51.369 Other intervertebral disc degeneration, lumbar region without mention of lumbar back pain or lower extremity pain; Z98.1 Arthrodesis status; Z51.81 Encounter for therapeutic drug level monitoring; Z79.891 Long term (current) use of opiate analgesic | CPT/HCPCS: 99212 ==

== ENCOUNTER 2024-12-05 10:17 | Outpatient (AMB) | payer MEDICARE, OTHER, SELFPAY ==
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
--- OUTSIDE RECORDS SUMMARY | 2024-12-05 10:57 | XMS_ITS | Encounter Summary ---
Author Organization [employer] Address [address] [facility] 7t [place] [address] Care Team Providers Care Nurse Orthopaedic Name Role Phone Tania Acosta PEOPLE MANAGER Primary Care Provider [phone] Reason for Visit * Reason Comments Med Refill Encounter Details Date Type Department Care Team (Late st Contact Info) Description 07/30/2022 Refill Awilda [facility] [address] [place] [address] Maren Sharma FNP [address] [place] [address] Chronic back pain, unspecified back location, unspecified [...] documented as of this encounter Care Teams Nurse Orthopaedic Relationship Specialty Start Date End Date Tania Acosta FNP [address] [place] [address] PCP - General Family Medicine 05/26/22 documented as of this encounter
--- OUTSIDE RECORDS SUMMARY | 2024-12-05 10:57 | XMS_ITS | Clinical Summary ---
Author Organization [address] [place] [address] [place] [phone] Phone Care Team Providers Care Sharebroker Name Role Phone Chaz Lee Primary Care Provider [phone] Allergies No known active allergies Medications atorvastatin [...] fusion construct before he starts physical therapy. Encounters Date Type Department Care Team Description 11/07/[address] [facility] [address] [address] Nishant Murray MD 11/01/2024 11:00 AM EDT Ancillary Procedure [facility] - [address] [place] [address] Nonrheumatic aortic (valve) stenosis from Last 3 Months Surgical History Surgery Date Site/Laterality Comments HIP ARTHROPLASTY Left PROCEDURE: HISTORICAL HIP REPLACEMENT; COMMENT: 2007 BACK SURGERY N/A PROCEDURE: HISTORICAL BACK SURGERY; COMMENT: 2007 - decompresion and L2-4 fusion by EYE SURGERY PROCEDURE: HISTORICAL EYE SURGERY; COMMENT: OS amblyopia HAND SURGERY PROCEDURE: [place] UNLISTED PROCEDURE HANDS/FINGERS; COMMENT: trigger finger release [...] Sign Reading Time Taken Comments Blood Pressure 140/82 11/01/2024 11:46 AM EDT Pulse 59 11/04/2023 10:57 AM EDT Temperature - - Respiratory Rate - - Oxygen Saturation - - Inhaled Oxygen Concentration - - Weight 85.3 kg (188 lb) 11/01/2024 11:46 AM EDT Height 172.7 cm (5' 8 ) 11/01/2024 11:46 AM EDT Body Mass Index 28.59 11/01/2024 11:46 AM EDT Plan of Treatment Health Maintenance Due Date Last Done Comments DTaP,Tdap,and Td Vaccines (1 - Tdap) 1965 RSV Immunization Adult Patients (1 - 1-dose 75+ series) 2021 Pneumococcal Vaccine: 50+ Years (2 of 2 - PCV) 04/01/2022 04/01/2021 Falls Risk Assessment 04/13/2022 Hepatitis C Screening 04/13/2022 Medicare Annual Wellness Visit 04/13/2022 Social Influencers of Health Screening 04/13/2022 Depression Screening 05/04/2024 COVID-19 Vaccine ( season) 2024 03/11/2024, 02/18/2023, 03/19/2022, Additional history exists Influenza Vaccine (#1) 2025 , 02/18/2023, 03/19/2022, Additional history exists Cholesterol Screening (Lipid Panel) 08/06/2027 08/05/2022 Zoster Vaccines Completed 03/11/2024, 11/24/2023 HIB Vaccines Aged Out No longer eligi [...] Procedure Name Priority Date/Time Associated Diagnosis Comments TRANSTHORACIC ECHOCARDIOGRAM (TTE) COMPLETE Routine 11/01/2024 11:48 AM EDT Nonrheumatic aortic (valve) stenosis from Last 3 Months Results * (ABNORMAL) TRANSTHORACIC ECHOCARDIOGRAM (TTE) COMPLETE (11/01/2024 11:48 AM EDT) Left Atrium Minor [place] 6.1 cm CV PACS Left Atrium Major [place] 5.8 cm CV PACS LA Area Sys (A2C) 26 cm2 CV PACS LA Area Sys (A4C) 20 cm2 CV PACS LA Volume (BP) 69 mL CV PACS RA Area 15.8 cm2 CV PACS RA 2D Volume 39 mL CV PACS AV Mean Gradient 38 mmHg CV PACS Ao VTI 96.3 cm CV PACS AV Peak Jimenez 3.9 m/s CV PACS AV Peak Gradient 62 mmHg CV PACS AV Area Continuity Equation 0.8 cm2 CV PACS AV Area Peak Velocity 0.8 cm2 CV PACS Aortic Sinus Valsalva 3.5 cm CV PACS Ascending Aorta 3.5 cm CV PACS IVC Proximal 1.1 cm CV PACS IVSD 1.1(A) 0.6 - 1.0 cm CV PACS LVIDD 4.9 4.2 - 5.8 cm CV PACS LVIDS 2.7 2.5 - 4.0 cm CV PACS LVOT Diameter 2.0 cm CV PACS LVOT Mean Jimenez 0.7 m/s CV PACS LVOT Mean Grad 2 mmHg CV PACS LVOT Peak VTI 25.0 cm CV PACS LVOT Peak Jimenez 1.0 m/s CV PACS LVOT Peak Gradient 4 mmHg CV PACS LVPWD 1.1(A) 0.6 - 1.0 cm CV PACS MV E' Tissue Velocity Lateral 9 cm/s CV PACS MV E' Tissue Velocity Septal 7 cm/s CV PACS LVOT Area 3.1 cm2 CV PACS LVOT Stroke Volume 79 mL CV PACS MV Deceleration [place] 2.6 m/s2 CV PACS E Wave Deceleration Time 304(A) 119 - 242 ms CV PACS MV PHT 89 ms CV PACS MV Peak A Jimenez 0.86 m/s CV PACS MV Peak E Jimenez 0.79 m/s CV PACS MV Area PHT 2.5 cm2 CV PACS PV Acceleration Time 156 ms CV PACS PV Acceleration Time 156 ms CV PACS RV Diastolic Basal Dimension 4.1 2.5 - 4.1 cm CV PACS RV S' 12 cm/s CV PACS TAPSE 28 mm CV PACS TR Peak Velocity 2.16 m/s CV PACS TR Peak Gradient 19 mmHg CV PACS E/E' Ratio Septal 11 CV PACS E/E' Ratio Averaged 10 CV PACS Relative Wall Thickness ratio 0.45 CV PACS LVOT:AV VTI Index 0.26 CV PACS FS 45 % CV PACS LV Mass 2D 200 g CV PACS LVOT flow 220 mL/s CV PACS AV Velocity Ratio 0.26 CV PACS E/A Ratio 0.9 CV PACS E/E' Ratio Lateral 9 CV PACS BSA 2.02 m2 CV PACS LA Volume Index (BP) 35 mL/m2 CV PACS LVIDD Index 2.46 cm/m2 CV PACS LVIDS Index 1.36 cm/m2 CV PACS LV Mass Index 2D 101 50 - 102 g/m2 CV PACS LVOT Stroke Index 40 mL/m2 CV PACS RA 2D Volume Index 20 18 - 32 mL/m2 CV PACS SANDY Index (VTI) 0.41 cm2/m2 CV PACS SANDY Index (Pk Jimenez) 0.40 cm2/m2 CV PACS Ascending Aorta Index 1.76 cm/m2 CV PACS Right Ventricular Peak Systolic Pressure 22 mmHg CV PACS Est. RA Pressure 3 mmHg CV PACS Anatomical Region Laterality Modality Ultrasound Narrative 11/07/2024 1:37 PM EDT Left ventricle cavity size is normal. Left ventricular systolic function is in the normal range with an ejection fraction of 60-65%. No regional LV wall motion abnormalities noted. Left ventricle mild concentric hypertrophy. Left atrium mildly dilated. Right ventricular systolic function is normal. Aortic valve demonstrates severe stenosis. Mean gradient of 38 with a VTI index of 0.26. No other significant valvular disease. When compared to October 05, 2023 it seems as though the aortic valve stenosis has progressed. The mean gradient then was in the range of 20 mmHg at that time. Left Ventricle Left ventricle cavity size is normal. There is mild concentric hypertrophy. Systolic function is normal with an ejection fraction of 60-65%. There are no regional LV wall motion abnormalities. Indeterminate diastolic function. Right Ventricle Right ventricular size at upper limits of normal. Systolic function is normal. Left Atrium Left atrium cavity is mildly dilated. Right Atrium Right atrium cavity is normal. IVC/SVC RA pressures is estimated to be 3 mmHg (IVC diameter <21 mm and decreases >50% during inspiration). Mitral Valve The leaflets are mildly thickened. There is annular calcification. There is trace regurgitation. There is no evidence of mitral valve stenosis. Tricuspid Valve Tricuspid valve structure is normal. There is trace regurgitation. There is no evidence of tricuspid valve stenosis. The right ventricular systolic pressure is normal. Aortic Valve The aortic valve is trileaflet. Thickened aortic valve leaflets with reduced excursion. There is trace to mild regurgitation. There is moderate to severe stenosis. The mean gradient reaches 38 mmHg with a VTI index of 0.26. Pulmonic Valve Pulmonic valve structure is normal. There is trace pulmonic valve regurgitation. There is no evidence of pulmonic valve stenosis. Ascending Aorta The aorta appears normal in size. Transverse aorta not well visualized. Pericardium Pericardium appears normal. There is no pericardial effusion. Study Details Overall the study quality was adequate. us Nishant Murray MD CV ECHO PROCEDURES Final Result from Last 3 Months Insurance MEDICARE [facility] Care Teams Sharebroker Relationship Specialty Start Date End Date Chaz Lee PA PCP - General 11/04/23
[2024-12-05 11:04] VITALS: BP 138/71; PULSE 87; O2SAT 96; BMI 27.7
== END 2024-12-05 11:01 | disposition home or self-care (01) ==
LOC: HO.PMC 10:18
PROVIDERS: PCP Physician Assistant Medical; Visit Provider Nurse Practitioner Family
DX: M96.1 Postlaminectomy syndrome, not elsewhere classified (principal); Z98.1 Arthrodesis status; M48.061 Spinal stenosis, lumbar region without neurogenic claudication; M51.369 Other intervertebral disc degeneration, lumbar region without mention of lumbar back pain or lower extremity pain; Z79.891 Long term (current) use of opiate analgesic
CPT/HCPCS: 99214; G2211

== ENCOUNTER → 2024-12-05 10:17 | Outpatient (BNVA) | payer MEDICARE, OTHER, SELFPAY | PROVIDERS: PCP Physician Assistant Medical; Visit Provider Nurse Practitioner Family | DX: Z51.81 Encounter for therapeutic drug level monitoring (principal); M96.1 Postlaminectomy syndrome, not elsewhere classified; M48.061 Spinal stenosis, lumbar region without neurogenic claudication; M51.369 Other intervertebral disc degeneration, lumbar region without mention of lumbar back pain or lower extremity pain; Z79.891 Long term (current) use of opiate analgesic; Z98.1 Arthrodesis status | CPT/HCPCS: 99212 ==

== ENCOUNTER 2025-02-21 13:37 | Outpatient (AMB) | payer MEDICARE, OTHER, SELFPAY ==
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
[2025-02-21 13:57] VITALS: BP 152/69; PULSE 57; O2SAT 99; BMI 28.7
== END 2025-02-21 14:17 | disposition home or self-care (01) ==
LOC: HO.PMC 13:38
PROVIDERS: PCP Physician Assistant Medical; Visit Provider Nurse Practitioner Family
DX: Z98.1 Arthrodesis status (principal); M48.061 Spinal stenosis, lumbar region without neurogenic claudication; M51.369 Other intervertebral disc degeneration, lumbar region without mention of lumbar back pain or lower extremity pain; Z79.891 Long term (current) use of opiate analgesic; M96.1 Postlaminectomy syndrome, not elsewhere classified; K40.90 Unilateral inguinal hernia, without obstruction or gangrene, not specified as recurrent
CPT/HCPCS: 99214; G2211

== ENCOUNTER → 2025-02-21 13:37 | Outpatient (BNVA) | payer MEDICARE, OTHER, SELFPAY | PROVIDERS: PCP Physician Assistant Medical; Visit Provider Nurse Practitioner Family | DX: Z51.81 Encounter for therapeutic drug level monitoring (principal); M48.061 Spinal stenosis, lumbar region without neurogenic claudication; M51.369 Other intervertebral disc degeneration, lumbar region without mention of lumbar back pain or lower extremity pain; M96.1 Postlaminectomy syndrome, not elsewhere classified; K40.90 Unilateral inguinal hernia, without obstruction or gangrene, not specified as recurrent; Z79.891 Long term (current) use of opiate analgesic; Z98.1 Arthrodesis status | CPT/HCPCS: 99212 ==